=== PATIENT | female | born 1945 | race African-American/Black ===

== ENCOUNTER 2022-04-04 17:57 | Inpatient (IN) | payer MEDICARE, MEDICAID ==
[~2022-04-04 17:57] MED LIST: Iopamidol-370 76% 500 ML 1 ML ONE
[2022-04-04 19:15] LABS: #Basophils 0.1 thou/uL (0.0-0.2); #Eosinphils 0.1 thou/uL (0.0-0.7); #Lymphocytes 1.9 thou/uL (1.20-3.40); #Monocytes 0.7 thou/uL (0.11-0.59); #Neutrophils 5.3 thou/uL (1.40-6.50); %Basophils 0.9 % (0.0-1.0); %Eosinophils 0.9 % (0.0-10.0); %Lymphocytes 23.9 % (21.0-51.0); %Monocytes 8.7 % (0.0-10.0); %Neutrophils 65.6 % (42.0-75.0); Hemoglobin 15.6 g/dL (12.0-16.0); Mean Corpuscular HGB CONC 31.5 g/dL (32.0-36.0); Mean Corpuscular Volume 85.9 fL (78.0-98.0); Mean Platelet Volume 7.8 fL (7.4-10.4); Platelet Count 240 thou/uL (130-400); RBC Distribution Width 13.4 % (11.5-14.5); Red Blood Cell (RBC) Count 5.76 mill/uL (4.20-5.40); White Blood Cell (WBC) Count 8.1 thou/uL (4.8-10.8)
[2022-04-04 19:36] LABS: ALT (SGPT) 11 U/L (8-55); AST (SGOT) 23 U/L (5-34); Albumin 3.9 g/dL (3.4-4.8); Alkaline Phosphatase 61 U/L (40-110); Anion Gap 15 mmol/L (10-20); BUN (Urea Nitrogen) 20 mg/dL (9.8-20.1); Bilirubin, Total 0.9 mg/dL (0.2-1.2); CK (CPK) 202 U/L (29-168); Calc. Creatinine Clearance 0 mL/min (70-130); Calcium 9.6 mg/dL (7.8-10.44); Carbon Dioxide 21 mmol/L (23-31); Chloride 108 mmol/L (98-107); Globulin 3.5 g/dL (2.4-3.5); Glucose 137 mg/dL (83-110); Magnesium 1.7 mg/dL (1.6-2.6); Protein, Total 7.4 g/dL (5.8-8.1); Sodium 140 mmol/L (136-145)
[2022-04-04 20:04] LABS: CKMB 3.2 ng/mL (0-6.6)
[2022-04-04] MEDS ORDERED: Aspirin Chewable 81 MG TAB ONE (22:37)
[2022-04-04] MEDS ORDERED: Senokot S 8.6-50 MG TAB PO PRN (23:06)
[2022-04-05 00:30] LABS: Hemoglobin A1c 5.6 % (4.0-6.0)
[2022-04-05] MEDS: Lactated Ringer's 1,000 ML IV SCH ×2 (04:47→16:48)
[2022-04-05 05:21] LABS: Prothrombin Time 13.5 sec (12.0-14.7)
[2022-04-05 05:22] LABS: PTT 29.2 sec (22.9-36.1)
[2022-04-05 05:39] LABS: ALT (SGPT) 11 U/L (8-55); AST (SGOT) 21 U/L (5-34); Albumin 3.9 g/dL (3.4-4.8); Alkaline Phosphatase 62 U/L (40-110); Anion Gap 15 mmol/L (10-20); BUN (Urea Nitrogen) 24 mg/dL (9.8-20.1); Bilirubin, Total 0.9 mg/dL (0.2-1.2); Calc. Creatinine Clearance 0 mL/min (70-130); Calcium 9.8 mg/dL (7.8-10.44); Carbon Dioxide 22 mmol/L (23-31); Chloride 108 mmol/L (98-107); Cholesterol 188 mg/dl (< 200 Desired); Globulin 3.6 g/dL (2.4-3.5); Glucose 139 mg/dL (83-110); HDL Cholesterol 47 mg/dL (>60 Neg Risk); LDL Cholesterol, Calculated 122 mg/dL; Potassium 4.1 mmol/L (3.5-5.1); Protein, Total 7.5 g/dL (5.8-8.1); Sodium 141 mmol/L (136-145); Triglycerides 93 mg/dL (Less than 150)
[2022-04-05] MEDS ORDERED: Clopidogrel Bisulfate 75 MG TAB ONE (10:02)
[2022-04-05] MEDS ORDERED: Aspirin 81 mg Enteric Coated Tablet ONE (10:02)
[2022-04-05] MEDS ORDERED: Nicotine 14 MG PATCH ONE (10:03)
[2022-04-05] MEDS ORDERED: Heparin 10,000 UNITS/ 10 ML VIAL ONE (10:05)
[2022-04-05] MEDS: Aspirin 81 mg Enteric Coated Tablet PO SCH (10:16)
[2022-04-05] MEDS: Nicotine 14 MG PATCH TD SCH (10:17)
[2022-04-05] MEDS: Clopidogrel Bisulfate 75 MG TAB PO SCH (10:17)
[2022-04-05] MEDS: Heparin 5,000 UNITS/ML VIAL SC SCH ×3 (10:17→20:31)
[2022-04-05 10:57] LABS: Troponin I 0.026 ng/mL (< 0.028)
[2022-04-05] MEDS ORDERED: Senokot S 8.6-50 MG TAB PO PRN (12:30)
[2022-04-05] MEDS: Atorvastatin Calcium 40 MG TAB PO SCH (20:31)
[2022-04-06] MEDS: Lactated Ringer's 1,000 ML IV SCH (05:40)
[2022-04-06 07:20] LABS: Anion Gap 15 mmol/L (10-20); BUN (Urea Nitrogen) 22 mg/dL (9.8-20.1); Calc. Creatinine Clearance 57 mL/min (70-130); Calcium 9.1 mg/dL (7.8-10.44); Carbon Dioxide 18 mmol/L (23-31); Chloride 111 mmol/L (98-107); Glucose 143 mg/dL (83-110); Potassium 4.2 mmol/L (3.5-5.1); Sodium 140 mmol/L (136-145)
[2022-04-06] MEDS: Aspirin 81 mg Enteric Coated Tablet PO SCH (08:38)
[2022-04-06] MEDS: Amlodipine 10 MG TAB PO SCH (08:38)
[2022-04-06] MEDS: Nicotine 14 MG PATCH TD SCH (08:38)
[2022-04-06] MEDS: Clopidogrel Bisulfate 75 MG TAB PO SCH (08:38)
[2022-04-06] MEDS: Heparin 5,000 UNITS/ML VIAL SC SCH ×3 (08:38→21:13)
[2022-04-06] MEDS: Acetaminophen 325 MG TAB PO PRN (21:12)
[2022-04-06] MEDS: Atorvastatin Calcium 40 MG TAB PO SCH (21:12)
[2022-04-07 07:14] LABS: Anion Gap 10 mmol/L (10-20); BUN (Urea Nitrogen) 19 mg/dL (9.8-20.1); Calc. Creatinine Clearance 61 mL/min (70-130); Carbon Dioxide 26 mmol/L (23-31); Chloride 109 mmol/L (98-107); Potassium 3.8 mmol/L (3.5-5.1); Sodium 141 mmol/L (136-145)
[2022-04-07 07:15] LABS: Calcium 9.1 mg/dL (7.8-10.44); Glucose 120 mg/dL (83-110)
[2022-04-07] MEDS: Amlodipine 10 MG TAB PO SCH (08:34)
[2022-04-07] MEDS: Aspirin 81 mg Enteric Coated Tablet PO SCH (08:34)
[2022-04-07] MEDS: Polyethylene Glycol 3350 17 GM Packet PO SCH (08:34)
[2022-04-07] MEDS: Clopidogrel Bisulfate 75 MG TAB PO SCH (08:34)
[2022-04-07] MEDS: Heparin 5,000 UNITS/ML VIAL SC SCH ×3 (08:35→20:38)
[2022-04-07] MEDS: Nicotine 21 MG PATCH TD SCH (08:37)
[2022-04-07] MEDS: Nicotine 14 MG PATCH TD SCH (08:48)
[2022-04-07] MEDS: Atorvastatin Calcium 40 MG TAB PO SCH (20:36)
[2022-04-08] MEDS ORDERED: Lisinopril 10 MG TAB PO SCH (09:00)
[2022-04-08] MEDS: Aspirin 81 mg Enteric Coated Tablet PO SCH (09:28)
[2022-04-08] MEDS: Clopidogrel Bisulfate 75 MG TAB PO SCH (09:28)
[2022-04-08] MEDS: Polyethylene Glycol 3350 17 GM Packet PO SCH (09:28)
[2022-04-08] MEDS: Nicotine 21 MG PATCH TD SCH (09:28)
[2022-04-08] MEDS: Heparin 5,000 UNITS/ML VIAL SC SCH ×3 (09:28→20:19)
[2022-04-08] MEDS: Amlodipine 10 MG TAB PO SCH (09:28)
[2022-04-08] MEDS: Labetalol HCl 100 MG/20 ML VIAL SLOW IVP PRN (17:38)
[2022-04-08] MEDS: Atorvastatin Calcium 40 MG TAB PO SCH (20:19)
[2022-04-09] MEDS: Acetaminophen 325 MG TAB PO PRN (06:31)
[2022-04-09] MEDS: Polyethylene Glycol 3350 17 GM Packet PO SCH (09:10)
[2022-04-09] MEDS: Amlodipine 10 MG TAB PO SCH (09:11)
[2022-04-09] MEDS: Clopidogrel Bisulfate 75 MG TAB PO SCH (09:11)
[2022-04-09] MEDS: Aspirin 81 mg Enteric Coated Tablet PO SCH (09:11)
[2022-04-09] MEDS: Lisinopril 20 MG TAB PO SCH (09:11)
[2022-04-09] MEDS: Nicotine 21 MG PATCH TD SCH (09:11)
[2022-04-09] MEDS: Heparin 5,000 UNITS/ML VIAL SC SCH ×3 (09:14→21:25)
[2022-04-09] MEDS: Latanoprost 0.005% Ophth Soln 2.5 ml Bottle EA EYE SCH (10:30)
[2022-04-09] MEDS: Atorvastatin Calcium 40 MG TAB PO SCH (21:25)
[2022-04-10] MEDS: Acetaminophen 325 MG TAB PO PRN ×3 (04:22→21:54)
[2022-04-10] MEDS: Clopidogrel Bisulfate 75 MG TAB PO SCH (08:22)
[2022-04-10] MEDS: Nicotine 21 MG PATCH TD SCH (08:22)
[2022-04-10] MEDS: Amlodipine 10 MG TAB PO SCH (08:22)
[2022-04-10] MEDS: Lisinopril 20 MG TAB PO SCH (08:22)
[2022-04-10] MEDS: Aspirin 81 mg Enteric Coated Tablet PO SCH (08:22)
[2022-04-10] MEDS: Polyethylene Glycol 3350 17 GM Packet PO SCH (08:22)
[2022-04-10] MEDS: Latanoprost 0.005% Ophth Soln 2.5 ml Bottle EA EYE SCH (08:22)
[2022-04-10] MEDS: Heparin 5,000 UNITS/ML VIAL SC SCH ×3 (08:23→21:53)
[2022-04-10] MEDS ORDERED: Hydrochlorothiazide 25 MG TAB PO SCH (14:30)
[2022-04-10] MEDS: Atorvastatin Calcium 40 MG TAB PO SCH (21:53)
[2022-04-11] MEDS: Heparin 5,000 UNITS/ML VIAL SC SCH ×3 (08:00→21:08)
[2022-04-11] MEDS: Latanoprost 0.005% Ophth Soln 2.5 ml Bottle EA EYE SCH (08:05)
[2022-04-11] MEDS: Polyethylene Glycol 3350 17 GM Packet PO SCH (08:05)
[2022-04-11] MEDS: Aspirin 81 mg Enteric Coated Tablet PO SCH (08:05)
[2022-04-11] MEDS: Amlodipine 10 MG TAB PO SCH (08:06)
[2022-04-11] MEDS: Clopidogrel Bisulfate 75 MG TAB PO SCH (08:06)
[2022-04-11] MEDS: Lisinopril 20 MG TAB PO SCH (08:06)
[2022-04-11] MEDS: Nicotine 21 MG PATCH TD SCH (08:06)
[2022-04-11] MEDS ORDERED: Hydrochlorothiazide 25 MG TAB PO SCH ×2 (09:00→09:45)
[2022-04-11 11:06] VITALS: BMI 28.0
[2022-04-11] MEDS: Labetalol HCl 100 MG/20 ML VIAL SLOW IVP PRN (16:31)
[2022-04-11] MEDS: Hydrochlorothiazide 25 MG TAB PO SCH (21:09)
[2022-04-11] MEDS: Atorvastatin Calcium 40 MG TAB PO SCH (21:09)
[2022-04-12] MEDS ORDERED: Boudreaux's Butt Paste 60 GM TUBE TOP PRN (07:18)
[2022-04-12] MEDS ORDERED: Zinc Oxide 56.7 GM TUBE TP PRN (07:30)
[2022-04-12] MEDS ORDERED: Lisinopril 20 MG TAB PO SCH (09:15)
[2022-04-12] MEDS: Polyethylene Glycol 3350 17 GM Packet PO SCH (09:45)
[2022-04-12] MEDS: Amlodipine 10 MG TAB PO SCH (09:45)
[2022-04-12] MEDS: Latanoprost 0.005% Ophth Soln 2.5 ml Bottle EA EYE SCH (09:45)
[2022-04-12] MEDS: Nicotine 21 MG PATCH TD SCH (09:46)
[2022-04-12] MEDS: Heparin 5,000 UNITS/ML VIAL SC SCH ×3 (09:46→21:18)
[2022-04-12] MEDS: Clopidogrel Bisulfate 75 MG TAB PO SCH (09:47)
[2022-04-12] MEDS: Aspirin 81 mg Enteric Coated Tablet PO SCH (09:47)
[2022-04-12] MEDS: Hydrochlorothiazide 25 MG TAB PO SCH ×2 (09:47→21:18)
[2022-04-12] MEDS: Lisinopril 20 MG TAB PO SCH (09:50)
[2022-04-12 20:00] LABS: Anion Gap 16 mmol/L (10-20); BUN (Urea Nitrogen) 29 mg/dL (9.8-20.1); Calc. Creatinine Clearance 47 mL/min (70-130); Calcium 9.4 mg/dL (7.8-10.44); Carbon Dioxide 20 mmol/L (23-31); Chloride 102 mmol/L (98-107); Glucose 157 mg/dL (83-110); Potassium 4.3 mmol/L (3.5-5.1); Sodium 134 mmol/L (136-145)
[2022-04-12] MEDS: Atorvastatin Calcium 40 MG TAB PO SCH (21:18)
[2022-04-13 04:08] LABS: Creatinine, Urine 91.42 mg/dL (47-110)
[2022-04-13 05:28] LABS: Anion Gap 14 mmol/L (10-20); BUN (Urea Nitrogen) 32 mg/dL (9.8-20.1); Calc. Creatinine Clearance 48 mL/min (70-130); Calcium 9.5 mg/dL (7.8-10.44); Carbon Dioxide 23 mmol/L (23-31); Chloride 102 mmol/L (98-107); Glucose 126 mg/dL (83-110); Potassium 3.8 mmol/L (3.5-5.1); Sodium 135 mmol/L (136-145)
[2022-04-13] MEDS: Nicotine 21 MG PATCH TD SCH (08:13)
[2022-04-13] MEDS: Latanoprost 0.005% Ophth Soln 2.5 ml Bottle EA EYE SCH (08:14)
[2022-04-13] MEDS: Clopidogrel Bisulfate 75 MG TAB PO SCH (08:14)
[2022-04-13] MEDS: Heparin 5,000 UNITS/ML VIAL SC SCH ×3 (08:15→20:45)
[2022-04-13] MEDS: Amlodipine 10 MG TAB PO SCH (08:15)
[2022-04-13] MEDS: Aspirin 81 mg Enteric Coated Tablet PO SCH (08:15)
[2022-04-13] MEDS: Hydrochlorothiazide 25 MG TAB PO SCH (08:15)
[2022-04-13] MEDS: Polyethylene Glycol 3350 17 GM Packet PO SCH (08:15)
[2022-04-13] MEDS ORDERED: Lisinopril 20 MG TAB PO SCH (09:00)
[2022-04-13] MEDS: Atorvastatin Calcium 40 MG TAB PO SCH (20:45)
[2022-04-14 05:42] LABS: #Basophils 0.1 thou/uL (0.0-0.2); #Eosinphils 0.1 thou/uL (0.0-0.7); #Monocytes 0.7 thou/uL (0.11-0.59); #Neutrophils 3.8 thou/uL (1.40-6.50); %Basophils 0.9 % (0.0-1.0); %Eosinophils 0.8 % (0.0-10.0); %Lymphocytes 30.5 % (21.0-51.0); %Monocytes 10.4 % (0.0-10.0); %Neutrophils 57.5 % (42.0-75.0); Hemoglobin 14.3 g/dL (12.0-16.0); Mean Corpuscular HGB CONC 32.1 g/dL (32.0-36.0); Mean Corpuscular Hemoglobin 27.2 pg (27.0-31.0); Mean Corpuscular Volume 84.7 fL (78.0-98.0); Mean Platelet Volume 7.9 fL (7.4-10.4); Platelet Count 260 thou/uL (130-400); RBC Distribution Width 13.4 % (11.5-14.5); Red Blood Cell (RBC) Count 5.26 mill/uL (4.20-5.40); White Blood Cell (WBC) Count 6.7 thou/uL (4.8-10.8)
[2022-04-14 05:59] LABS: Anion Gap 13 mmol/L (10-20); BUN (Urea Nitrogen) 37 mg/dL (9.8-20.1); Calc. Creatinine Clearance 41 mL/min (70-130); Calcium 9.4 mg/dL (7.8-10.44); Carbon Dioxide 28 mmol/L (23-31); Chloride 101 mmol/L (98-107); Glucose 117 mg/dL (83-110); Potassium 3.8 mmol/L (3.5-5.1); Sodium 138 mmol/L (136-145)
[2022-04-14] MEDS ORDERED: Lactated Ringer's 500 ML IV SCH (07:00)
[2022-04-14] MEDS: Acetaminophen 325 MG TAB PO PRN (10:28)
[2022-04-14] MEDS: Latanoprost 0.005% Ophth Soln 2.5 ml Bottle EA EYE SCH (10:29)
[2022-04-14] MEDS: Hydrochlorothiazide 25 MG TAB PO SCH (10:30)
[2022-04-14] MEDS: Amlodipine 10 MG TAB PO SCH (10:30)
[2022-04-14] MEDS: Heparin 5,000 UNITS/ML VIAL SC SCH ×3 (10:30→23:10)
[2022-04-14] MEDS: Aspirin 81 mg Enteric Coated Tablet PO SCH (10:30)
[2022-04-14] MEDS: Lisinopril 20 MG TAB PO SCH (10:31)
[2022-04-14] MEDS: Clopidogrel Bisulfate 75 MG TAB PO SCH (10:31)
[2022-04-14] MEDS: Nicotine 21 MG PATCH TD SCH (10:32)
[2022-04-14] MEDS: Polyethylene Glycol 3350 17 GM Packet PO SCH (10:32)
[2022-04-14] MEDS: Atorvastatin Calcium 40 MG TAB PO SCH (23:10)
[2022-04-15 08:03] LABS: Anion Gap 16 mmol/L (10-20); BUN (Urea Nitrogen) 37 mg/dL (9.8-20.1); Calc. Creatinine Clearance 49 mL/min (70-130); Calcium 9.4 mg/dL (7.8-10.44); Carbon Dioxide 21 mmol/L (23-31); Chloride 103 mmol/L (98-107); Glucose 114 mg/dL (83-110); Potassium 3.9 mmol/L (3.5-5.1); Sodium 136 mmol/L (136-145)
[2022-04-15] MEDS: Latanoprost 0.005% Ophth Soln 2.5 ml Bottle EA EYE SCH (10:20)
[2022-04-15] MEDS: Amlodipine 10 MG TAB PO SCH (10:22)
[2022-04-15] MEDS: Aspirin Chewable 81 MG TAB PO SCH (10:22)
[2022-04-15] MEDS: Lisinopril 20 MG TAB PO SCH (10:23)
[2022-04-15] MEDS: Clopidogrel Bisulfate 75 MG TAB PO SCH (10:23)
[2022-04-15] MEDS: Hydrochlorothiazide 25 MG TAB PO SCH (10:23)
[2022-04-15] MEDS: Heparin 5,000 UNITS/ML VIAL SC SCH ×3 (10:28→20:51)
[2022-04-15] MEDS: Nicotine 21 MG PATCH TD SCH (10:31)
[2022-04-15] MEDS: Polyethylene Glycol 3350 17 GM Packet PO SCH (10:47)
[2022-04-15 17:42] LABS: SARS-CoV-2 NAA Rapid Test Not Detected (NotDetected)
[2022-04-15] MEDS: Acetaminophen 325 MG TAB PO PRN (20:50)
[2022-04-15] MEDS: Atorvastatin Calcium 40 MG TAB PO SCH (20:51)
[2022-04-15 23:37] LABS: Anion Gap 15 mmol/L (10-20); BUN (Urea Nitrogen) 42 mg/dL (9.8-20.1); Calc. Creatinine Clearance 40 mL/min (70-130); Calcium 9.6 mg/dL (7.8-10.44); Carbon Dioxide 21 mmol/L (23-31); Chloride 102 mmol/L (98-107); Glucose 159 mg/dL (83-110); Magnesium 1.8 mg/dL (1.6-2.6); Potassium 4.1 mmol/L (3.5-5.1); Sodium 134 mmol/L (136-145)
[2022-04-15] MEDS ORDERED: Magnesium 2 GM/50 ML(in water) 2 GM in Premix Bag 1 BAG IVPB SCH (23:45)
[2022-04-16] MEDS ORDERED: Lactated Ringer's 1,000 ML IV SCH (00:30)
[2022-04-16 05:35] LABS: #Eosinphils 0.1 thou/uL (0.0-0.7); #Lymphocytes 1.2 thou/uL (1.20-3.40); #Monocytes 0.6 thou/uL (0.11-0.59); #Neutrophils 2.5 thou/uL (1.40-6.50); %Basophils 0.7 % (0.0-1.0); %Eosinophils 1.4 % (0.0-10.0); %Lymphocytes 28.5 % (21.0-51.0); %Monocytes 12.7 % (0.0-10.0); %Neutrophils 56.7 % (42.0-75.0); Hemoglobin 9.3 g/dL (12.0-16.0); Mean Corpuscular HGB CONC 31.2 g/dL (32.0-36.0); Mean Corpuscular Hemoglobin 27.8 pg (27.0-31.0); Mean Corpuscular Volume 89.2 fL (78.0-98.0); Mean Platelet Volume 7.9 fL (7.4-10.4); Platelet Count 163 thou/uL (130-400); RBC Distribution Width 13.1 % (11.5-14.5); Red Blood Cell (RBC) Count 3.34 mill/uL (4.20-5.40); White Blood Cell (WBC) Count 4.3 thou/uL (4.8-10.8)
[2022-04-16 05:54] LABS: Anion Gap 17 mmol/L (10-20); BUN (Urea Nitrogen) 33 mg/dL (9.8-20.1); Calc. Creatinine Clearance 65 mL/min (70-130); Calcium 8.2 mg/dL (7.8-10.44); Carbon Dioxide 17 mmol/L (23-31); Chloride 104 mmol/L (98-107); Glucose 93 mg/dL (83-110); Potassium 3.9 mmol/L (3.5-5.1); Sodium 134 mmol/L (136-145)
[2022-04-16 08:37] LABS: #Eosinphils 0.1 thou/uL (0.0-0.7); #Lymphocytes 1.4 thou/uL (1.20-3.40); #Monocytes 0.6 thou/uL (0.11-0.59); #Neutrophils 3.3 thou/uL (1.40-6.50); %Basophils 0.8 % (0.0-1.0); %Eosinophils 0.9 % (0.0-10.0); %Lymphocytes 26.5 % (21.0-51.0); %Monocytes 10.2 % (0.0-10.0); %Neutrophils 61.6 % (42.0-75.0); Mean Corpuscular HGB CONC 31.9 g/dL (32.0-36.0); Mean Corpuscular Hemoglobin 27.4 pg (27.0-31.0); Mean Platelet Volume 7.3 fL (7.4-10.4); Platelet Count 213 thou/uL (130-400); RBC Distribution Width 13.2 % (11.5-14.5); Red Blood Cell (RBC) Count 5.11 mill/uL (4.20-5.40); White Blood Cell (WBC) Count 5.4 thou/uL (4.8-10.8)
[2022-04-16 08:58] LABS: Anion Gap 15 mmol/L (10-20); BUN (Urea Nitrogen) 45 mg/dL (9.8-20.1); Calc. Creatinine Clearance 39 mL/min (70-130); Calcium 9.2 mg/dL (7.8-10.44); Carbon Dioxide 26 mmol/L (23-31); Chloride 100 mmol/L (98-107); Glucose 117 mg/dL (83-110); Magnesium 2.5 mg/dL (1.6-2.6); Potassium 4.1 mmol/L (3.5-5.1); Sodium 137 mmol/L (136-145)
[2022-04-16] MEDS: Polyethylene Glycol 3350 17 GM Packet PO SCH (09:07)
[2022-04-16] MEDS: Nicotine 21 MG PATCH TD SCH (09:08)
[2022-04-16] MEDS: Latanoprost 0.005% Ophth Soln 2.5 ml Bottle EA EYE SCH (09:08)
[2022-04-16] MEDS: Aspirin Chewable 81 MG TAB PO SCH (09:08)
[2022-04-16] MEDS: Heparin 5,000 UNITS/ML VIAL SC SCH ×3 (09:08→19:39)
[2022-04-16] MEDS: Clopidogrel Bisulfate 75 MG TAB PO SCH (09:08)
[2022-04-16] MEDS: Hydrochlorothiazide 25 MG TAB PO SCH (10:31)
[2022-04-16] MEDS: Amlodipine 10 MG TAB PO SCH (10:31)
[2022-04-16] MEDS: Atorvastatin Calcium 40 MG TAB PO SCH (19:39)
[2022-04-16 20:26] VITALS: BP 121/82; TEMP 98
== END 2022-04-16 20:22 | DRG 64 ==
LOC: ERS 17:57 → ERHOLD 22:29 → CCU 04-05 18:02 → NEURO 04-06 18:22
PROVIDERS: ADMIT Student in an Organized Health Care Education/Training Program; ATTEND Student in an Organized Health Care Education/Training Program
PROC: 4A10X4Z Monitoring of Central Nervous Electrical Activity, External Approach (ICD-10-PCS; principal; 2022-04-06)
DX: I63.9 Cerebral infarction, unspecified (principal); G93.6 Cerebral edema; G81.94 Hemiplegia, unspecified affecting left nondominant side; N17.9 Acute kidney failure, unspecified; E87.1 Hypo-osmolality and hyponatremia; I47.2 Ventricular tachycardia; I10 Essential (primary) hypertension; R47.1 Dysarthria and anarthria; E78.5 Hyperlipidemia, unspecified; E11.9 Type 2 diabetes mellitus without complications; L22 Diaper dermatitis; Z20.822 Contact with and (suspected) exposure to COVID-19
CPT/HCPCS: 36415; 36416; 70450; 70496; 70498; 70551; 71045; 80048; 80053; 80061; 82550; 82553; 82570; 83036; 83735; 84300; 84443; 84484; 85025; 85610; 85730; 93005; 93010; 93306; 95712; 95819; 95957; J1644; J3475; J7120; Q9967; U0002; U0003; U0005